=== PATIENT | female | born 1990 | race Caucasian/White ===

== ENCOUNTER → 2024-05-23 06:51 | Outpatient (REF) | payer BC, SELFPAY | LOC: PNTC 06:51 | PROVIDERS: ATTENDING PHYSICIAN Obstetrics & Gynecology | DX: Z36.0 Encounter for antenatal screening for chromosomal anomalies (principal); Z36.82 Encounter for antenatal screening for nuchal translucency | CPT/HCPCS: 76801; 76813 ==

== ENCOUNTER 2024-12-06 19:15 | Inpatient (IN) | payer BC, SELFPAY ==
[2024-12-06 19:52] VITALS: BP 128/80; BMI 28.1
[2024-12-06 20:24] LABS: % Basophils 0.3 % (0-2); % Eosinophils 0.7 % (0-6); % Immature Granulocytes 0.4 % (0-0.5); % Lymphocytes 18.4 % (20.5-51.1); % Monocytes 6.7 % (1.7-9.3); % Neutrophils 73.5 % (42.2-75.2); Absolute Eosinophils 0.1 10^3/uL (0-0.7); Absolute Lymphocytes 1.3 10^3/uL (1.2-3.4); Absolute Monocytes 0.5 10^3/uL (0.1-0.6); Absolute Neutrophils 5.2 10^3/uL (1.4-6.5); Hematocrit 32.5 % (37.0-47.0); Hemoglobin 11.4 g/dL (12.0-16.0); Mean Corp Hgb Conc. 35.1 g/dL (33.0-37.0); Mean Corpuscular Hgb 30.1 pg (27.0-31.0); Mean Corpuscular Volume 85.8 fL (81.0-99.0); Mean Platelet Volume 10.1 fL (7.4-10.4); Nucleated Red Blood Cells % 0 %; Platelet Count 261 10^3/uL (130-400); Red Blood Cell Count 3.79 10^6/uL (4.20-5.40); Red Cell Dist. Width 13.2 % (11.5-14.5); White Blood Cell Count 7.1 10^3/uL (4.8-10.8)
[2024-12-06] MEDS: CYTOTEC 25 MICROGRAM VAG (20:26)
[2024-12-06] MEDS: TUMS CHEWABLE TABLET 400 MG PO (22:15)
[2024-12-07] MEDS: CYTOTEC 50 MICROGRAM PO (00:39)
[2024-12-07] MEDS: STADOL 1 MG IV (04:27)
[2024-12-07] MEDS: LR 1000 IV ×2 (04:27→06:44)
[2024-12-07] MEDS: CYTOTEC PO ×3 (04:29→13:02)
[2024-12-07] MEDS: SUBLIMAZE 100 MCG EPIDURAL (07:14)
[2024-12-07] MEDS: FENTANYL/BUPIVACAINE 100 EPIDURAL (07:14)
[2024-12-07] MEDS: NSS (PRESERVATIVE FREE) 8 ML IV (10:18)
[2024-12-07] MEDS: PEPCID 20 MG IV (10:18)
[2024-12-07] MEDS: MOTRIN 600 MG PO ×2 (15:04→22:00)
[2024-12-07] MEDS: PEPCID 20 MG PO (20:15)
[2024-12-07] MEDS: ANESTHETIC LOZENGE 1 LOZENGE PO (22:00)
[2024-12-08] MEDS: MOTRIN 600 MG PO ×3 (05:16→23:46)
[2024-12-08 05:36] LABS: Hematocrit 29.1 % (37.0-47.0)
[2024-12-08] MEDS: PEPCID 20 MG PO (08:22)
[2024-12-08] MEDS: PRENATAL PLUS 1 TABLET PO (08:22)
[2024-12-08] MEDS: TYLENOL 650 MG PO ×3 (08:26→23:46)
[2024-12-08] MEDS: SENOKOT-S 1 TABLET PO (08:27)
[2024-12-08 15:52] LABS: Syphilis/T. pallidum Ab Reflex Negative (Negative)
[2024-12-08] MEDS: PEPCID PO (21:24)
[2024-12-09] MEDS: MOTRIN 600 MG PO ×2 (06:01→12:19)
[2024-12-09] MEDS: TYLENOL 650 MG PO ×2 (06:01→12:19)
[2024-12-09] MEDS: PRENATAL PLUS 1 TABLET PO (07:23)
[2024-12-09] MEDS: PEPCID PO (07:42)
--- NOTE | 2024-12-09 09:47 | CM ---
CM reviewed chart, reviewed post score. Mother seen bedside, congratulated on of daughter. Mother confirms this is her first child. Mother confirms she has a boss miner picked out- Amari Alonzo, appointment scheduled. Mother
reports she has supplies needed for child, has good support, father of child is able to take time off, mother is able to take 8 weeks off. Offered VN program to mother (assist with visits, provide support to mother), mother declines at this
time, reports she will be making outpatient follow up appointments for herself if regarding to PPD. CM will continue to follow for all discharge planning needs.
Plan; home with child, no needs.
== END 2024-12-09 14:24 | disposition home or self-care (01) | DRG 807 ==
LOC: LDRP 19:15
PROVIDERS: Obstetrics & Gynecology; ADMITTING PHYSICIAN Obstetrics & Gynecology
PROC: 3E0P7VZ Introduction of Hormone into Female Reproductive, Via Natural or Artificial Opening (ICD-10-PCS; 2024-12-06)
PROC: 0KQM0ZZ Repair Perineum Muscle, Open Approach (ICD-10-PCS; 2024-12-07)
PROC: 10E0XZZ Delivery of Products of Conception, External Approach (ICD-10-PCS; 2024-12-07)
DX: O48.0 Post-term pregnancy (principal); Z37.0 Single live birth; Z3A.40 40 weeks gestation of pregnancy; O77.0 Labor and delivery complicated by meconium in amniotic fluid; O32.6XX0 Maternal care for compound presentation, not applicable or unspecified; O70.1 Second degree perineal laceration during delivery
CPT/HCPCS: 88307; 36415; 85014; 85018; 85025; 86780; 86850; 86900; 86901